=== PATIENT | male | born 2000 | race Caucasian/White ===

== ENCOUNTER → 2020-03-22 | Outpatient (CLI) | payer BC | END | disposition home or self-care (01) | LOC: COVID19 12:45 | DX: B34.9 Viral infection, unspecified (principal); Z78.9 Other specified health status; Z20.828 Contact with and (suspected) exposure to other viral communicable diseases ==

== ENCOUNTER → 2020-10-29 | Outpatient (CLI) | payer BC | END | disposition home or self-care (01) | LOC: LAB 15:11 | PROVIDERS: ATTEND Psychiatry & Neurology Psychiatry | DX: E55.9 Vitamin D deficiency, unspecified (principal) ==